=== PATIENT | female | born 1950 | race African-American/Black ===

== ENCOUNTER 2016-06-27 10:38 | Emergency (ER) | payer OTHER, MEDICAID ==
[~2016-06-27] VITALS: Ht 165.1 cm; Wt 79.4 kg
[2016-06-27 10:50] VITALS: BP 146/75
--- NOTE | 2016-06-27 12:15 | NUR ---
Patient to bed 05 via wheelchair per EMT.
--- NOTE | 2016-06-27 12:25 | NUR ---
PT PRESENTS TO ER W/C/O BUG BITE TO RIGHT FOREARM AND SWELLING TO AFFECTED AREA. HX DM, HTN, ASTHMA, OA, RA.REDNESS NOTED ON RT ARM;PAIN SCALE OF 10/10;AAOX4;DENIES SOB/COUGH/N/V/F AT THIS TIME;HOB ELEVATED;NEEDS ATTENDED;SAFETY MEASURES DONE;MD MADE AWARE OF PT'S CONDITION.
--- NOTE | 2016-06-27 12:50 | NUR ---
PT IS CRYING;PT STATES SHE'S IN PAIN; TRIED TO COMFORT PT;EXPALINED DR IS BUSY DUE TO HIGH VOLUME OF PT;POSITION PT FOR COMFORT;NOTIFIED DR MERIDA;
--- NOTE | 2016-06-27 12:52 | NUR ---
Dr. Daly evaluating patient at bedside.
--- NOTE | 2016-06-27 12:52 | NUR ---
DR MERIDA TALKED TO PT;ORDERED DILAUDID.
[2016-06-27] MEDS ORDERED: HYDROmorphone PFS 2 MG/ML SYR IM ONE (13:05)
--- NOTE | 2016-06-27 13:38 | NUR ---
LAB AT BEDSIDE.
[2016-06-27] MEDS ORDERED: LORazepam 2 MG/ML VIAL IM ONE (14:00)
[2016-06-27 14:02] LABS: BASOPHILS # (AUTO) 0.7 K/uL (0.00-0.22); EOSINOPHILS # (AUTO) 0.2 K/uL (0-0.4); HEMATOCRIT 41.9 % (36-48); HEMOGLOBIN 13.8 g/dL (12.0-16.0); LYMPHOCYTES # (AUTO) 2.8 K/uL (2.5-16.5); MEAN CORPUSCULAR HEMOGLOBIN 32 pg (27-31); MEAN CORPUSCULAR HGB CONC 33 g/dL (33-37); MEAN CORPUSCULAR VOLUME 97 fL (80-94); MONOCYTES # (AUTO) 0.3 K/uL (0.8-1.0); NEUTROPHILS # (AUTO) 9.1 K/uL (1.8-7.7); PLATELET COUNT (AUTO) 189 K/uL (140-450); RED BLOOD CELL COUNT(AUTO) 4.32 MIL/uL (4.20-5.40); WHITE BLOOD COUNT (AUTO) 13.1 K/uL (4.8-10.8)
[2016-06-27 14:18] LABS: ANION GAP 14.5 (8-16); CALCIUM 9.5 mg/dL (8.5-10.1); CARBON DIOXIDE 24.5 mmol/L (21-32); CREATININE 0.7 mg/dL (0.6-1.3)
[2016-06-27 14:21] LABS: INR 1.1 (0.8-1.2); PROTHROMBIN TIME 10.6 secs (10.8-13.4)
[2016-06-27 14:23] LABS: PARTIAL THROMBOPLASTIN TIME 18.8 secs (22-35.6); TOTAL BILIRUBIN 0.7 mg/dL (0.0-1.0); TOTAL PROTEIN, SERUM 7.1 g/dL (6.4-8.2)
[2016-06-27] MEDS ORDERED: DOXYCYCLINE 100 MG CAP PO SCH (14:55)
--- NOTE | 2016-06-27 15:01 | NUR ---
VIBRAMYCIN 100 MG IS NOT AVAILABLE IN THE [facility] [address] THEY SAID THEY WILL BRING THE MEDICINE.
--- NOTE | 2016-06-27 15:21 | NUR ---
Patient discharged with v/s stable. Written and verbal after care instructions given and explained.Patient alert, oriented and verbalized understanding of instructions. Ambulatory with steady gait. All questions addressed prior to discharge. ID band removed. Patient advised to follow up with PMD. Rx of PERCOCET,DOXYCYCLINE AND XANAX given. Patient educated on indication of medication including possible reaction and side effects. Opportunity to ask questions provided and answered.
[2016-06-27 15:22] VITALS: BP 154/76
== END 2016-06-27 15:21 | disposition home or self-care (01) ==
LOC: MED 10:38
DX: S50.861A Insect bite (nonvenomous) of right forearm, initial encounter (principal); J45.909 Unspecified asthma, uncomplicated; I25.2 Old myocardial infarction; E11.9 Type 2 diabetes mellitus without complications; I10 Essential (primary) hypertension; Z88.2 Allergy status to sulfonamides; Z88.6 Allergy status to analgesic agent; Z88.8 Allergy status to other drugs, medicaments and biological substances; W57.XXXA Bitten or stung by nonvenomous insect and other nonvenomous arthropods, initial encounter; Y93.89 Activity, other specified; Y92.89 Other specified places as the place of occurrence of the external cause; Y99.8 Other external cause status
CPT/HCPCS: 36415; 80053; 85025; 85610; 85730; 96372; 99284; J1170; J2060

== ENCOUNTER 2017-07-18 16:04 | Emergency (ER) | payer OTHER, MEDICAID ==
[~2017-07-18] VITALS: Ht 165.1 cm; Wt 83.0 kg
[2017-07-18 16:08] VITALS: BP 163/84
--- NOTE | 2017-07-18 16:11 | NUR ---
PT BACK TO LOBBY
--- NOTE | 2017-07-18 16:47 | NUR ---
66/F BIB SELF C/O REDNESS & SLIGHTLY SWOLLEN TO RFA S/P BUG BITE X YESTERDAY . AAOX4 WITH EVEN AND STEADY GAIT; LUNGS CLEAR BL. PATIENT STATES PAIN OF 9/10 AT THIS TIME; VSS; PATIENT POSITIONED FOR COMFORT; HOB ELEVATED; BEDRAILS UP X2; BED DOWN. ER MD MADE AWARE OF PT STATUS.
--- NOTE | 2017-07-18 16:47 | NUR ---
PT AMBULATED TO ER BED 5
--- NOTE | 2017-07-18 16:48 | NUR ---
Patient being evaluated by DR OLSON at bedside.
[2017-07-18] MEDS ORDERED: CLINDAMYCIN 600 MG/4 ML VIAL IM ONE (17:05)
[2017-07-18] MEDS ORDERED: DEXAMETHASONE 10 MG/ML VIAL IM ONE (17:05)
[2017-07-18] MEDS ORDERED: HYDROmorphone 1 MG/ML AMP IM ONE (17:40)
[2017-07-18] MEDS ORDERED: HYDROmorphone PFS 2 MG/ML SYR ONE (17:53)
[2017-07-18 18:49] VITALS: BP 158/81
--- NOTE | 2017-07-18 18:49 | NUR ---
Patient discharged with BP 158/81 DENIES BELLE AT THIS TIME, MD MADE AWARE. Written and verbal after care instructions given and explained. Patient alert, oriented and verbalized understanding of instructions. Ambulatory with steady gait. All questions addressed prior to discharge. ID band removed. Patient advised to follow up with PMD. Rx of TRAMADOL, CLINDAMYCIN&PREDNISONE given. Patient educated on indication of medication including possible reaction and side effects. Opportunity to ask questions provided and answered.
== END 2017-07-18 18:49 | disposition home or self-care (01) ==
LOC: MED 16:04
DX: T63.481A Toxic effect of venom of other arthropod, accidental (unintentional), initial encounter (principal); L03.113 Cellulitis of right upper limb; Y92.89 Other specified places as the place of occurrence of the external cause; E11.9 Type 2 diabetes mellitus without complications
CPT/HCPCS: 82948; 96372; 99284; J1100; J1170; J3490

== ENCOUNTER 2017-07-22 21:23 | Emergency (ER) | payer OTHER, MEDICAID ==
[~2017-07-22] VITALS: Ht 165.1 cm; Wt 81.6 kg
[2017-07-22 21:38] VITALS: BP 157/75
--- NOTE | 2017-07-22 21:44 | NUR ---
TO LOBBY, A/W BED, ZURDO, VSGem, ERMD NOTED.
--- NOTE | 2017-07-22 22:13 | NUR ---
PT TAKEN TO CHAIR E
[2017-07-22] MEDS ORDERED: SULFAMETH/TRIMETH DS 800/160MG 1 TAB PO ONE (23:20)
[2017-07-22] MEDS ORDERED: CEPHALEXIN 500 MG CAP PO ONE (23:20)
[2017-07-22] MEDS ORDERED: ACETAMINOPHEN EXTRA STRENGTH 500 MG TAB PO ONE (23:20)
[2017-07-22 23:55] VITALS: BP 143/82
--- NOTE | 2017-07-22 23:55 | NUR ---
Patient discharged with v/s stable. Written and verbal after care instructions given and explained. Patient alert, oriented and verbalized understanding of instructions. Ambulatory with steady gait. All questions addressed prior to discharge. ID band removed. Patient advised to follow up with PMD. Rx of Keflex, Bactrim, Ibuprofen and Mupirocin juan f given. Patient educated on indication of medication including possible reaction and side effects. Opportunity to ask questions provided and answered.
== END 2017-07-22 23:55 | disposition home or self-care (01) ==
LOC: MED 21:23
DX: L03.113 Cellulitis of right upper limb (principal); J45.909 Unspecified asthma, uncomplicated; I25.2 Old myocardial infarction; E11.9 Type 2 diabetes mellitus without complications; I10 Essential (primary) hypertension; Z88.2 Allergy status to sulfonamides; Z88.5 Allergy status to narcotic agent; Z88.8 Allergy status to other drugs, medicaments and biological substances
CPT/HCPCS: 82948; 99284

== ENCOUNTER 2018-05-29 11:38 | Emergency (ER) | payer OTHER, MEDICAID ==
[~2018-05-29] VITALS: Ht 165.1 cm; Wt 84.4 kg
[2018-05-29 11:50] VITALS: BP 180/89
--- NOTE | 2018-05-29 12:07 | NUR ---
PATIENT PRESENTS TO ED WITH THE CHIEF C/O RIGHT HIP AND SHOULDER PAIN SINCE SUNDAY. PT STATES SHE FELL ON HER RIGHT SIDE ON SUNDAY. DENIES LOC. NO INJURY OR SWELLING NOTED. TENDERNESS PRESENT TO RIGHT UPPER SHOULDER. PT MOVES RIGHT ARM WITH PAIN. AMBULATES WITH CANE. DENIES N/V/D; SKIN IS PINK/WARM/DRY. AAOX4 WITH EVEN AND STEADY GAIT. PT DENIES ANY FEVER, CP, SOB, OR COUGH AT THIS TIME. PATIENT STATES PAIN OF 10/10 AT THIS TIME. VSS. PATIENT POSITIONED FOR COMFORT. HOB ELEVATED. BEDRAILS UP X2. BED DOWN. ER MD MADE AWARE OF PT STATUS.
[2018-05-29] MEDS ORDERED: KETOROLAC 60 MG/2 ML VIAL IM ONE (12:25)
--- NOTE | 2018-05-29 13:05 | NUR ---
BACK FORM X-RAY.
[2018-05-29] MEDS ORDERED: HYDROcodone/APAP 5/325 MG 1 TAB TAB PO ONE (13:45)
[2018-05-29 14:16] VITALS: BP 187/73
--- NOTE | 2018-05-29 14:16 | NUR ---
Patient discharged with v/s stable. Written and verbal after care instructions given and explained. Patient verbalized understanding. Ambulatory with steady gait. All questions addressed prior to discharge. Advised to follow up with PMD.
== END 2018-05-29 14:16 | disposition home or self-care (01) ==
LOC: MED 11:38
DX: S70.01XA Contusion of right hip, initial encounter (principal); S49.91XA Unspecified injury of right shoulder and upper arm, initial encounter; M54.2 Cervicalgia; J45.909 Unspecified asthma, uncomplicated; E11.9 Type 2 diabetes mellitus without complications; I10 Essential (primary) hypertension; Z98.890 Other specified postprocedural states; Z88.5 Allergy status to narcotic agent; Z88.2 Allergy status to sulfonamides; Z88.6 Allergy status to analgesic agent; W01.0XXA Fall on same level from slipping, tripping and stumbling without subsequent striking against object, initial encounter; Y93.01 Activity, walking, marching and hiking; Y92.098 Other place in other non-institutional residence as the place of occurrence of the external cause; Y99.8 Other external cause status
CPT/HCPCS: 72170; 73030; 73060; 73502; 82948; 96372; 99283; J1885; Q0092

== ENCOUNTER 2018-11-17 17:48 | Emergency (ER) | payer OTHER, MEDICAID ==
[~2018-11-17] VITALS: Ht 165.1 cm; Wt 83.0 kg
[2018-11-17 17:52] VITALS: BP 112/70
--- NOTE | 2018-11-17 18:00 | NUR ---
PT TAKEN TO BED 2.
--- NOTE | 2018-11-17 18:27 | NUR ---
PT C/O LT FLANK PAIN THAT STARTED AT 0900. STABBING 10/10 PAIN. PT STATES NO INJURY TO BACK. PT C/O BP FLUCTUATING THROUGHOUT DAY. PT STATES SHE PASSED OUT 3X DURING CHRISTIAN TODAY & DOES NOT REMEMBER IT. NO C/O HEADACHE. PT SAYS SHE IS HAVING MORE FREQUENT URINATION THAN USUAL. PT LAYING IN BED RESTING, CALM. MEDHX: HTN, DM, ARTHRITIS
[2018-11-17] MEDS ORDERED: NACL 0.9% 500 ML IV SCH (18:48)
[2018-11-17] MEDS ORDERED: ONDANSETRON 4 MG/2 ML VIAL IVP ONE (18:50)
[2018-11-17 19:16] LABS: BASOPHILS # (AUTO) 0.1 K/uL (0.00-0.22); BASOPHILS % (AUTO) 1.1 % (0.0-2.0); EOSINOPHILS # (AUTO) 0.3 K/uL (0-0.4); EOSINOPHILS % (AUTO) 3.7 % (0.0-4.0); HEMATOCRIT 37.8 % (36-48); HEMOGLOBIN 12.5 g/dL (12.0-16.0); LYMPHOCYTES # (AUTO) 3.4 K/uL (2.5-16.5); LYMPHOCYTES % (AUTO) 37.2 % (20.5-51.1); MEAN CORPUSCULAR HEMOGLOBIN 32 pg (27-31); MEAN CORPUSCULAR HGB CONC 33 g/dL (33-37); MEAN CORPUSCULAR VOLUME 97.5 fL (80-94); MONOCYTES # (AUTO) 0.8 K/uL (0.8-1.0); MONOCYTES % (AUTO) 9.1 % (1.7-9.3); NEUTROPHILS # (AUTO) 4.4 K/uL (1.8-7.7); NEUTROPHILS % (AUTO) 48.9 % (42.2-75.2); PLATELET COUNT (AUTO) 173 K/uL (140-450); RED BLOOD CELL COUNT(AUTO) 3.88 MIL/uL (4.20-5.40); RED CELL DISTRIBUTION WIDTH 12.7 % (11.6-13.7)
[2018-11-17] MEDS ORDERED: CYCLOBENZAPRINE 10 MG TAB PO ONE (19:25)
--- NOTE | 2018-11-17 19:26 | NUR ---
TRANSFER OF CARE AND REPORT GIVEN FROM NILESH ARCHER
[2018-11-17 19:33] LABS: PROTHROMBIN TIME 10.7 secs (10.8-13.4)
[2018-11-17 19:43] LABS: ANION GAP 11.9 (8-16); CARBON DIOXIDE 28.5 mmol/L (21-32); POTASSIUM 4.4 mmol/L (3.5-5.1)
[2018-11-17 19:44] LABS: CREATININE 1.3 mg/dL (0.6-1.3); TOTAL BILIRUBIN 0.7 mg/dL (0.0-1.0)
[2018-11-17 19:45] LABS: ALBUMIN 3.7 g/dL (3.4-5.0)
--- NOTE | 2018-11-17 19:55 | NUR ---
XRAY AT BEDSIDE
[2018-11-17] MEDS ORDERED: HYDROcodone/APAP 5/325 MG 1 TAB TAB PO ONE (20:05)
--- NOTE | 2018-11-17 20:20 | NUR ---
PT RESTING IN BED COMFORTABLY. HR BETWEEN 46-55. ERMD NOTIFIED.
[2018-11-17 20:59] LABS: APPEARANCE,URINE HAZY (CLEAR); BILIRUBIN,URINE 1+ (NEGATIVE); BLOOD, URINE TRACE-L (NEGATIVE); COLOR,URINE YELLOW (YELLOW); LEUKOCYTE ESTERASE ,URINE 2+ (NEGATIVE); NITRITE, URINE NEGATIVE (NEGATIVE); PH,URINE 5.5 (5.0-9.0); UGLUCOSE TRACE (NEGATIVE)
[2018-11-17] MEDS ORDERED: NITROFURANTOIN 100 MG CAP PO ONE (21:05)
[2018-11-17 21:06] LABS: RBC,URINE 0-5 /HPF (0-5); WBC,URINE 80-100 /HPF (0-5)
[2018-11-17 21:27] VITALS: BP 119/52
== END 2018-11-17 21:28 | disposition home or self-care (01) ==
LOC: MED 17:48
DX: N39.0 Urinary tract infection, site not specified (principal); M25.50 Pain in unspecified joint; J45.909 Unspecified asthma, uncomplicated; E11.9 Type 2 diabetes mellitus without complications; I10 Essential (primary) hypertension; Z98.890 Other specified postprocedural states; Z88.5 Allergy status to narcotic agent; Z88.2 Allergy status to sulfonamides; Z88.8 Allergy status to other drugs, medicaments and biological substances
CPT/HCPCS: 36415; 71045; 80053; 81001; 83605; 83880; 84484; 85025; 85610; 85730; 87040; 87086; 93005; 96374; 99284; J2405; J7030; Q0092

== ENCOUNTER 2020-12-30 11:38 | Emergency (ER) | payer OTHER, MEDICAID ==
[~2020-12-30] VITALS: Ht 160 cm; Wt 65.8 kg
[2020-12-30 12:00] VITALS: BP 189/87
--- NOTE | 2020-12-30 12:32 | NUR ---
Patient being evaluated by DR WILKINSON at [facility].
--- NOTE | 2020-12-30 12:35 | NUR ---
PT W/C ASSIED TO BED 2.
[2020-12-30] MEDS ORDERED: MORPHINE SULFATE 4 MG/ML SYR IVP ONE (12:40)
[2020-12-30] MEDS ORDERED: NACL 0.9% 500 ML IV ONE (12:40)
[2020-12-30] MEDS ORDERED: ONDANSETRON 4 MG/2 ML VIAL IVP ONE (12:40)
--- NOTE | 2020-12-30 12:55 | NUR ---
70 y/o F BIB self from home c/o R hip pain, bilateral LE pain, low back pain, and generalized body pain s/p mechanical fall on Sunday. Patient A&Ox4, ambulatory with walker, reports she was using her walker [place] and tripped, hitting herself against a parked vehicle. Patient states she is unsure whether she lost consciousness, states bystanders assisted her back up. Patient states she was not seen for her injuries until her pain and symptoms worsened yesterday. Patient states 12/26, "toothache/constant," non-radiating pain. Patient reports most pain to low back and R hip, where she will have intermittent episodes of intense pain. Patient denies SOB, chest pain, fever, chills, nausea, vomiting, abd pain, headache, blurry vision. Patient reports on blood thinners and diagnosed with DVT to left UE 3 weeks ago. Pt placed into gown and cloth laminating supervisor showing BP 165/65 HR 48 strong and regular @ the radial. Bed locked in lowest position, side rails x 2 for pt safety, call light in reach. PMH: ASA, Xarelto, CAD A: Sulfa, morphine, ibuprofen
[2020-12-30] MEDS ORDERED: fentaNYL citrate 0.05 MG/ML VIAL IVP ONE (13:35)
[2020-12-30 13:41] LABS: ALBUMIN 4.1 g/dL (3.4-5.0); ANION GAP 10.6 (8-16); ASPARTATE AMINOTRANSFERASE 24 U/L (15-37); CARBON DIOXIDE 30.4 mmol/L (21-32); CHLORIDE 105 mmol/L (98-107); CREATININE 0.9 mg/dL (0.6-1.3); GLUCOSE 93 mg/dL (74-106); SODIUM SERUM 142 mmol/L (136-145); TOTAL BILIRUBIN 0.4 mg/dL (0.0-1.0); UREA NITROGEN, BLOOD 16 mg/dL (7-18)
[2020-12-30 13:54] LABS: BASOPHILS # (AUTO) 0.1 K/uL (0.00-0.22); BASOPHILS % (AUTO) 1.1 % (0.0-2.0); EOSINOPHILS # (AUTO) 0.2 K/uL (0-0.4); EOSINOPHILS % (AUTO) 2.2 % (0.0-4.0); HEMOGLOBIN 11.9 g/dL (12.0-16.0); LYMPHOCYTES # (AUTO) 1.8 K/uL (2.5-16.5); LYMPHOCYTES % (AUTO) 26.6 % (20.5-51.1); MEAN CORPUSCULAR HEMOGLOBIN 34 pg (27-31); MEAN CORPUSCULAR HGB CONC 33 g/dL (33-37); MEAN CORPUSCULAR VOLUME 102.7 fL (80-94); MONOCYTES # (AUTO) 0.3 K/uL (0.8-1.0); MONOCYTES % (AUTO) 4.9 % (1.7-9.3); NEUTROPHILS # (AUTO) 4.5 K/uL (1.8-7.7); NEUTROPHILS % (AUTO) 65.2 % (42.2-75.2); PLATELET COUNT (AUTO) 194 K/uL (140-450); RED BLOOD CELL COUNT(AUTO) 3.51 MIL/uL (4.20-5.40); RED CELL DISTRIBUTION WIDTH 13.2 % (11.6-13.7); WHITE BLOOD COUNT (AUTO) 6.9 K/uL (4.8-10.8)
[2020-12-30 14:10] LABS: PROTHROMBIN TIME 10.5 secs (10.8-13.4)
[2020-12-30] MEDS ORDERED: HYDROmorphone PFS 2 MG/ML SYR IVP ONE (16:30)
[2020-12-30] MEDS ORDERED: ACET-5629 PO (18:07)
[2020-12-30 18:45] VITALS: BP 196/62
--- NOTE | 2020-12-30 18:45 | NUR ---
Patient discharged with v/s stable. Written and verbal after care instructions given and explained. Patient alert, oriented and verbalized understanding of instructions. Wheelchair assisted to car without incident, accompanied by Ca (family). All questions addressed prior to discharge. ID band removed. Patient advised to follow up with PMD. Rx of Percocet 5-325 mg Tablet given. Patient educated on indication of medication including possible reaction and side effects. Opportunity to ask questions provided and answered.
== END 2020-12-30 18:45 | disposition home or self-care (01) ==
LOC: MED 11:38
DX: S33.5XXA Sprain of ligaments of lumbar spine, initial encounter (principal); S76.011A Strain of muscle, fascia and tendon of right hip, initial encounter; S80.211A Abrasion, right knee, initial encounter; S80.212A Abrasion, left knee, initial encounter; D50.9 Iron deficiency anemia, unspecified; E11.9 Type 2 diabetes mellitus without complications; I10 Essential (primary) hypertension; Z95.1 Presence of aortocoronary bypass graft; Z86.718 Personal history of other venous thrombosis and embolism; W19.XXXA Unspecified fall, initial encounter; Y93.89 Activity, other specified; Y92.89 Other specified places as the place of occurrence of the external cause; Y99.8 Other external cause status
CPT/HCPCS: 36415; 70450; 71260; 72125; 72128; 72131; 73560; 74177; 80053; 85025; 85610; 85730; 93005; 96361; 96374; 96375; 99285; J1170; J2405; J3010; J7030; Q0092; Q9967; J2270

== ENCOUNTER 2021-03-05 16:28 | Inpatient (IN) | payer OTHER, MEDICAID ==
[~2021-03-05] VITALS: Ht 157.5 cm; Wt 59.0 kg
[~2021-03-05 16:28] MED LIST: ACET-5629 PO
[2021-03-05 16:32] VITALS: BP 175/59
--- NOTE | 2021-03-05 16:35 | NUR ---
BIBA TO BED 08
[2021-03-05] MEDS ORDERED: DOCUSATE SODIUM 100 MG GELCAP PO ONE (17:40)
[2021-03-05] MEDS ORDERED: methocarbamoL 500 MG TAB PO ONE (17:40)
[2021-03-05] MEDS ORDERED: LIDOCAINE 5% 1 EA PATCH TP ONE (17:40)
--- NOTE | 2021-03-05 18:00 | NUR ---
PT BIB BLS RUN C/O GENERALIZED WEAKNESS SINCE THIS AM, ALSO C/O LOWER BACK PAIN.
--- NOTE | 2021-03-05 19:15 | NUR ---
RN RECIEVED SHIFT REPORT FROM DAY SHIFT RN.
--- NOTE | 2021-03-05 19:20 | NUR ---
RN ALERTED MD OF PT BLOOD PRESSURE 184/70.
--- NOTE | 2021-03-05 19:20 | NUR ---
RN TO PT ROOM. PT ALERT AND ORIENTED X4. EQUAL RISE AND FALL OF CHEST. PT COMPLAINING OF 22 G RIGHT AC IV, UPON ASSESSMENT OF IV SITE IV WAS PARTIALLY DC BY PT. RN CLEANED IV SITE AND RE-INSERTED IV 20 G L AC. PT TOLERATED PROCEDURE WELL. RN OFFERED PT WARM BLANKETS PER PT REQUEST. WILL CONTINUE TO MONITOR.
[2021-03-05 19:22] LABS: BASOPHILS # (AUTO) 0.1 K/uL (0.00-0.22); BASOPHILS % (AUTO) 0.9 % (0.0-2.0); EOSINOPHILS # (AUTO) 0.3 K/uL (0-0.4); EOSINOPHILS % (AUTO) 3.9 % (0.0-4.0); HEMATOCRIT 42.6 % (36-48); HEMOGLOBIN 14.4 g/dL (12.0-16.0); LYMPHOCYTES # (AUTO) 1.8 K/uL (2.5-16.5); LYMPHOCYTES % (AUTO) 20.6 % (20.5-51.1); MEAN CORPUSCULAR HEMOGLOBIN 33 pg (27-31); MEAN CORPUSCULAR HGB CONC 34 g/dL (33-37); MEAN CORPUSCULAR VOLUME 97.9 fL (80-94); MONOCYTES # (AUTO) 0.7 K/uL (0.8-1.0); MONOCYTES % (AUTO) 8.6 % (1.7-9.3); NEUTROPHILS # (AUTO) 5.8 K/uL (1.8-7.7); PLATELET COUNT (AUTO) 224 K/uL (140-450); RED BLOOD CELL COUNT(AUTO) 4.35 MIL/uL (4.20-5.40); RED CELL DISTRIBUTION WIDTH 12.3 % (11.6-13.7); WHITE BLOOD COUNT (AUTO) 8.8 K/uL (4.8-10.8)
[2021-03-05 19:42] LABS: ALBUMIN 3.9 g/dL (3.4-5.0); ASPARTATE AMINOTRANSFERASE 54 U/L (15-37); CARBON DIOXIDE 22.3 mmol/L (21-32); CHLORIDE 102 mmol/L (98-107); CREATININE 0.7 mg/dL (0.6-1.3); GLUCOSE 92 mg/dL (74-106); MAGNESIUM 1.8 mg/dL (1.8-2.4); POTASSIUM 4.3 mmol/L (3.5-5.1); SODIUM SERUM 135 mmol/L (136-145); TOTAL BILIRUBIN 0.8 mg/dL (0.0-1.0); UREA NITROGEN, BLOOD 8 mg/dL (7-18)
--- NOTE | 2021-03-05 20:14 | NUR ---
PT CRYING OUT, COMPLAINING OF PAIN. STATES THAT PREVIOUS PAIN MANAGEMENT INITIATED HAS NOT WORKED. RN ALERTED . TO BEDSIDE TO EVALUATE PT. MD MADE AWARE OF PT BLOOD PRESSURE.
[2021-03-05 20:27] LABS: CREATINE KINASE MB 1.5 ng/mL (0-3.6)
[2021-03-05] MEDS ORDERED: HYDROmorphone PFS 2 MG/ML SYR IVP ONE ×2 (20:35→23:25)
--- NOTE | 2021-03-05 20:35 | NUR ---
PT MEDICATED PER MD ORDERS. PLEASE SEE EHR.
[2021-03-05] MEDS ORDERED: NACL 0.9% 1,000 ML IV ONE (20:55)
--- NOTE | 2021-03-05 22:27 | NUR ---
PT STILL HAS NOT URINATED. NOTIFIED. NO NEW ORDERS RECIEVED AT THIS TIME.
--- NOTE | 2021-03-05 23:09 | NUR ---
RN TO PT ROOM. PT ALERT AND ORIENTED X4. COMPLAINING THAT PAIN IN LOWER BACK HAS INCREASED, RATES PAIN 10/10. REQUESTS MORE PAIN MEDICATION. NOTIFIED.
--- NOTE | 2021-03-05 23:09 | NUR ---
PT STILL HAS NOT URINATED MD NOTIFIED.
--- NOTE | 2021-03-05 23:41 | NUR ---
PT MEDICATED PER MD ORDERS. RN AT PT BEDSIDE DUE TO PT CRYING SAYING SHE IS SCARED. RN PROVIDED THERAPEUTIC COMMUNICATION AND ALLOWED PT TO EXPRESS HERSELF. PT STATES THAT SHE FEELS A LITTLE BETTER AFTER CONVERSATION.
[2021-03-05] MEDS ORDERED: POTASSIUM CHLORIDE 10 MEQ TABER PO PRN (23:45)
[2021-03-05] MEDS ORDERED: ACETAMINOPHEN 325 MG TAB PO PRN (23:45)
[2021-03-05] MEDS ORDERED: guaiFENesin DM 200/20 MG-10 ML 10 ML UDC PO PRN (23:45)
[2021-03-05] MEDS ORDERED: ZOLPIDEM 5 MG TAB PO PRN (23:45)
[2021-03-05] MEDS ORDERED: DOCUSATE SODIUM 100 MG GELCAP PO PRN (23:45)
--- NOTE | 2021-03-05 23:45 | NUR ---
PT UNABLE TO RECALL HOME MEDICATIONS.
[2021-03-06] MEDS ORDERED: hydrALAZINE 20 MG/ML VIAL IVP ONE ×2 (00:05→00:15)
--- NOTE | 2021-03-06 00:05 | NUR ---
PT BLOOD PRESSURE 238/84. NOTIFIED. NEW ORDERS RECIEVED.
[2021-03-06 00:25] LABS: PROTHROMBIN TIME 12.1 secs (10.8-13.4)
[2021-03-06] MEDS: NACL 0.9% 1,000 ML IV SCH ×2 (00:41→12:43)
--- NOTE | 2021-03-06 00:48 | NUR ---
URINE COLLECTED AND SENT TO LAB.
--- NOTE | 2021-03-06 01:02 | NUR ---
PT REQUESTS SLEEP AID DUE TO INSOMNIA.
--- NOTE | 2021-03-06 01:20 | NUR ---
PT MEDICATED PER MD ORDERS. RN TURNED DOWN LIGHTS TO PROMOTE SLEEP. PT REPOSITIONED IN BED FOR COMFORT. WARM BLANKETS PROVIDED.
--- NOTE | 2021-03-06 01:54 | NUR ---
NOTIFIED OF PT BLOOD PRESSURE BEING 230/70. TO PLACE NEW ORDERS IN MAY.
[2021-03-06] MEDS ORDERED: NIFEdipine 30 MG TABER PO SCH (01:55)
[2021-03-06] MEDS ORDERED: LABETALOL 100 MG/20 ML VIAL IV ONE (01:55)
[2021-03-06 02:21] LABS: CHOL/HDL RATIO 2.9 (1-4.5); FREE T4 (FREE THYROXINE) 1.07 ng/dL (0.76-1.46); THYROID STIMULATING HORMONE 0.99 uIU/mL (0.34-3.74)
--- NOTE | 2021-03-06 03:55 | NUR ---
PT LYING IN BED WITH EYES CLOSED, APPEARS TO BE ASLEEP. EQUAL RISE AND FALL OF CHEST. ALL VS ARE STABLE AT THIS TIME. BP DECREASED TO 180/60. NO ACUTE DISTRESS AT THIS TIME. WILL CONTINUE TO MONITOR PT.
--- NOTE | 2021-03-06 04:54 | NUR ---
PT REPOSITIONED FOR COMFORT. NO ACUTE DISTRESS AT THIS TIME. WILL CONTINUE TO MONITOR PT.
--- NOTE | 2021-03-06 06:29 | NUR ---
PT CALLED TO NURSING STATION TO BE REPOSITIONED. RN AND EMT REPOSITIONED PT PER REQUEST. NO ACUTE DISTRESS AT THIS TIME. WILL CONTINUE TO MONITOR PT.
[2021-03-06 07:00] LABS: BASOPHILS # (AUTO) 0.1 K/uL (0.00-0.22); EOSINOPHILS # (AUTO) 0.8 K/uL (0-0.4); EOSINOPHILS % (AUTO) 10.1 % (0.0-4.0); HEMATOCRIT 38.6 % (36-48); HEMOGLOBIN 12.8 g/dL (12.0-16.0); LYMPHOCYTES % (AUTO) 24.2 % (20.5-51.1); MEAN CORPUSCULAR HEMOGLOBIN 33 pg (27-31); MEAN CORPUSCULAR HGB CONC 33 g/dL (33-37); MEAN CORPUSCULAR VOLUME 99.6 fL (80-94); MONOCYTES % (AUTO) 12.1 % (1.7-9.3); NEUTROPHILS # (AUTO) 4.4 K/uL (1.8-7.7); NEUTROPHILS % (AUTO) 52.6 % (42.2-75.2); PLATELET COUNT (AUTO) 195 K/uL (140-450); RED BLOOD CELL COUNT(AUTO) 3.88 MIL/uL (4.20-5.40); RED CELL DISTRIBUTION WIDTH 12.4 % (11.6-13.7); WHITE BLOOD COUNT (AUTO) 8.4 K/uL (4.8-10.8)
--- NOTE | 2021-03-06 07:16 | NUR ---
Call light responded to pt requesting extra blanket states she is cold. [place] provided. All pt needs met at this time. monitoring manager remains in place. Bed locked in lowest position, side rails x 2, call light in reach.
--- NOTE | 2021-03-06 07:16 | NUR ---
REPORT GIVEN TO NILESH HOYT.
--- NOTE | 2021-03-06 07:16 | NUR ---
Report and continuation of care received from NILESH Ceballos
[2021-03-06 07:37] LABS: BARBITURATE, URINE NEGATIVE ng/ml (NEG <=200); BENZODIAZEPINE, URINE POSITIVE ng/mL (NEG <=200); CANNABINOID, URINE NEGATIVE ng/mL (NEG <=50); COCAINE, URINE NEGATIVE ng/mL (NEG <=300); OPIATE, URINE POSITIVE ng/mL (NEG <=2000); PHENCYCLIDINE SCREEN,URINE NEGATIVE ng/mL (NEG <=25)
[2021-03-06 07:39] LABS: ANION GAP 17.2 (8-16); CARBON DIOXIDE 18.3 mmol/L (21-32); CHLORIDE 105 mmol/L (98-107); CREATININE 0.7 mg/dL (0.6-1.3); GLUCOSE 77 mg/dL (74-106); POTASSIUM 3.5 mmol/L (3.5-5.1); SODIUM SERUM 137 mmol/L (136-145); UREA NITROGEN, BLOOD 7 mg/dL (7-18)
--- NOTE | 2021-03-06 08:26 | NUR ---
Report given to INLESH Rodriges.
--- NOTE | 2021-03-06 08:29 | NUR ---
Patient will be admitted to care of Dr. Hamilton. Admited to Med/Surg. Will go to room 104A. Belongings list completed. Report to NILESH Rodriges.
[2021-03-06 08:40] VITALS: BP 151/64
--- NOTE | 2021-03-06 08:40 | NUR ---
RECEIVED PATIENT FROM ER VIA GURNEY. PATIENT PRESENTED TO ER WITH SEVERE BACK PAIN. PATIENT IS A&O X4. RESPIRATIONS ARE EVEN AND UNLABORED ON ROOM AIR. PATIENT STATES NO BM IN 4 DAYS. ACTIVE BOWEL SOUNDS IN ALL 4 QUADRANTS. PATIENT AMBULATORY BUT VERY WEAK AND NEEDS ASSISTANCE. PUREWICK IN PLACE WITH CONTINUOUS SUCTION. IV SITE IS A 20G AT THE LEFT AC; PATENT, DRY, FLUSHING WELL. ORIENTED PATIENT TO ROOM AND HOSPITAL POLICY. PATIENT VERBALIZED UNDERSTANDING. ALL SAFETY PRECAUTIONS IN PLACE.
[2021-03-06] MEDS: PANTOPRAZOLE 40 MG TABEC PO SCH (09:08)
[2021-03-06] MEDS: HYDROmorphone 1 MG/ML AMP IVP PRN ×2 (09:10→15:21)
--- NOTE | 2021-03-06 09:10 | NUR ---
PATIENT COMPLAINS OF 10/10 LOWER BACK PAIN. ADMINISTERED PRN PAIN MEDICATION. PATIENT VERBALIZED UNDERSTANDING. ALL SAFETY PRECAUTIONS IN PLACE.
--- NOTE | 2021-03-06 12:05 | NUR ---
PATIENT IS AWAKE AND RESTING IN BED. NO S/S OF DISTRESS. ALL SAFETY PRECAUTIONS IN PLACE.
[2021-03-06] MEDS: LORazepam 2 MG/ML VIAL IVP PRN (12:43)
--- NOTE | 2021-03-06 15:21 | NUR ---
PATIENT COMPLAINS OF 9/10 PAIN. ADMINISTERED PRN PAIN MEDICATION. PATIENT VERBALIZED UNDERSTANDING. ALL SAFETY PRECAUTIONS IN PLACE.
[2021-03-06 16:00] VITALS: BP 157/66
--- NOTE | 2021-03-06 19:57 | NUR ---
ENDORSED PATIENT TO SQL SERVER ARCHITECT RN. FOR CONTINUITY OF CARE. PATIENT IS STABLE.
[2021-03-06 20:00] VITALS: BP 125/75
[2021-03-07] MEDS: HYDROmorphone 1 MG/ML AMP IVP PRN (01:59)
--- NOTE | 2021-03-07 02:46 | NUR ---
PATIENT AWAKE C/O OF PAIN IN BACK PATIENT IV SITE WAS LEAKING TRIED TO START ANOTHER IV SITE NOT ABLE TO GET WAS NOT ABLE TO GIVE DILAUDID 0.5 TOLD CHARGE NURSE I DID NOT GIVE DILAUDID WAIST MEDICATION. PATIENT INCONT. OF STOOL AND URINE. NO SIGNS OF DISTRESS.
[2021-03-07 04:00] VITALS: BP 180/80
[2021-03-07 07:06] LABS: ANION GAP 16.6 (8-16); CARBON DIOXIDE 23.3 mmol/L (21-32); CHLORIDE 107 mmol/L (98-107); CREATININE 0.7 mg/dL (0.6-1.3); GLUCOSE 102 mg/dL (74-106); POTASSIUM 3.9 mmol/L (3.5-5.1); SODIUM SERUM 143 mmol/L (136-145); UREA NITROGEN, BLOOD 7 mg/dL (7-18)
--- NOTE | 2021-03-07 07:10 | NUR ---
RECEIVED ENDORSEMENT FROM HEAD OF TRAINING AND DEVELOPMENT NURSE FOR CONTINUITY OF CARE. ALL SAFETY MEASURE IN PLACE.
[2021-03-07 07:22] LABS: BASOPHILS # (AUTO) 0.1 K/uL (0.00-0.22); BASOPHILS % (AUTO) 0.9 % (0.0-2.0); EOSINOPHILS % (AUTO) 9.7 % (0.0-4.0); HEMATOCRIT 41.7 % (36-48); LYMPHOCYTES % (AUTO) 20.2 % (20.5-51.1); MEAN CORPUSCULAR HEMOGLOBIN 33 pg (27-31); MEAN CORPUSCULAR HGB CONC 34 g/dL (33-37); MEAN CORPUSCULAR VOLUME 97.8 fL (80-94); MONOCYTES # (AUTO) 0.9 K/uL (0.8-1.0); MONOCYTES % (AUTO) 9.1 % (1.7-9.3); NEUTROPHILS % (AUTO) 60.1 % (42.2-75.2); PLATELET COUNT (AUTO) 217 K/uL (140-450); RED BLOOD CELL COUNT(AUTO) 4.27 MIL/uL (4.20-5.40); RED CELL DISTRIBUTION WIDTH 12.3 % (11.6-13.7); WHITE BLOOD COUNT (AUTO) 9.9 K/uL (4.8-10.8)
--- NOTE | 2021-03-07 08:00 | NUR ---
PT COMPLAINING OF PAIN AND ALSO NOTED WITH ELEVATED BLOOD PRESSURE OF 200/80 AND BP MED DISCONTINUE AND UNABLE TO OBTAINED IV LINE . INFORM DR. HAMILTON WAITING FOR RESPONSE.
--- NOTE | 2021-03-07 08:00 | NUR ---
DISCUSSED PLAN OF CARE WITH IGNACIO YEBOAH. WILL CONTINUE TO MONITOR
[2021-03-07 08:06] LABS: T4 (THYROXINE) 8.4 ug/dL (4.5-12.0)
[2021-03-07] MEDS ORDERED: HYDROcodone/APAP 5/325 MG 1 TAB TAB PO PRN (08:35)
[2021-03-07] MEDS: PANTOPRAZOLE 40 MG TABEC PO SCH (09:26)
--- NOTE | 2021-03-07 10:24 | NUR ---
MULTIPLE ATTEMPTS TO SEE PATIENT FOR PHYSICAL THERAPY EVALUATION HOWEVER PATIENT CONTINUES REFUSAL STATING SHE HAS 10/10 PAIN ON HER MID-BACK AND FEELING NAUSEOUS. PATIENT IS PREMEDICATED; RN NOTIFIED OF SYMPTOMS. PATIENT STATED " I CAN'T AND DO NOT WANT TO ATTEMPT TO GET UP TODAY." WILL FOLLOW UP TOMORROW; RN AWARE.
--- NOTE | 2021-03-07 10:32 | NUR ---
PATIENT HAS BEEN SCREENED AND CATEGORIZED LOW NUTRITION RISK. PATIENT WILL BE SEEN WITHIN 7 DAYS OF ADMISSION. 03/12/[address]
[2021-03-07] MEDS ORDERED: NIFEdipine 30 MG TABER PO SCH (11:30)
--- NOTE | 2021-03-07 11:41 | NUR ---
OBTAINED ORDER AND GIVEN BLOOD PRESSURE MEDICATION TO PT.
[2021-03-07] MEDS: ONDANSETRON 4 MG/2 ML VIAL IM/IVP PRN (12:05)
--- NOTE | 2021-03-07 12:07 | NUR ---
PT GIVEN ZOFRAN IM FOR COMPLAIN OF NAUSEA.
[2021-03-07] MEDS: NACL 0.9% 1,000 ML IV SCH ×2 (13:15→20:00)
--- NOTE | 2021-03-07 14:35 | NUR ---
DR. HAMILTON AT BED SIDE INFORM PT FOR THE PROCEDURE HE ORDER AND GET CONSENT FROM PT.
[2021-03-07 16:00] VITALS: BP 200/85
--- NOTE | 2021-03-07 16:27 | NUR ---
RN TRIED AGAIN TO PUT IV BUT UNSUCCESSFUL PT COMPLAIN OF PAIN AND REFUSED TO TAKE NORCO DUE TO SIDE EFFECT OF NAUSEA INFORM. DR. HAMILTON IF WE CAN GET IM DILAUDID.
[2021-03-07] MEDS: HYDROmorphone 1 MG/ML AMP IM PRN (17:13)
--- NOTE | 2021-03-07 17:16 | NUR ---
DILAUDID IM ORDER AND GIVEN TO PT.
--- NOTE | 2021-03-07 18:00 | NUR ---
MID LINE DONE ON RIGHT UPPER ARM WITH DOUBLE LUMEN.
--- NOTE | 2021-03-07 19:15 | NUR ---
GAVE REPORT TO PLANNING RN NURSE FOR CONTINUITY OF CARE. PT STABLE.
--- NOTE | 2021-03-07 19:16 | NUR ---
RECEIVED REPORT FROM MORNING SHIFT FOR CONTINUITY OF CARE. PATIENT IS STABLE IN BED. A&OX4. VERBALLY RESPONSIVE AND ABLE TO COMMUNICATE NEEDS. STATES TOLERABLE PAIN. RESPIRATIONS EVEN AND UNLABORED. ON ROOM AIR WITH NO APPARENT S/SX OF ACUTE DISTRESS. SKIN IS INTACT. PATIENT IS INCONTINENT. PADS ARE PRESENT. MIDLINE RIGHT UPPER ARM IS PATENT, INTACT AND ASYMPTOMATIC WITH NS INFUSING AT 80 ML/HOUR. PLAN OF CARE AND WHITE COMMUNICATION BOARD UPDATED. BED IN LOW/LOCKED POSITION. CALL LIGHT WITHIN REACH. ENCOURAGED PATIENT TO CALL FOR ANY NEEDS/ASSISTANCE. WILL CONTINUE TO MONITOR.
--- NOTE | 2021-03-07 20:00 | NUR ---
PATIENT'S BP IS HIGH. WILL CONTACT MD FOR FURTHER INSTRUCTIONS.
--- NOTE | 2021-03-07 20:30 | NUR ---
TOUR ACTOR TRACY CALLED TO BATTERY CONTAINER TESTER PATIENT FOR CT WITH CONTRAST. ADVISED TECH TO DELAY TRANSPORT BATTERY CONTAINER TESTER UNTIL BP HAS BEEN STABILIZED.
[2021-03-07] MEDS: hydrALAZINE 25 MG TAB PO PRN (20:53)
--- NOTE | 2021-03-07 21:00 | NUR ---
Patient's Plan of Care was discussed and reviewed with GOLF CART REPAIRER: STACY OVIEDO
--- NOTE | 2021-03-07 21:25 | NUR ---
RECHECKED PATIENT'S BLOOD PRESSURE AND DECREASED TO 133/75. PATIENT STATED SHE MIGHT VOMIT. PROVIDED WITH EMESIS BAG AND TOWEL. CONTACTED GAS APPLIANCE REPAIRER JORGE THAT PATIENT IS READY FOR SUPPLY CHAIN VICE PRESIDENT. PATIENT'S RESPIRATIONS EVEN AND UNLABORED WITH NO APPARENT S/SX OF ACUTE DISTRESS. WHITE COMMUNICATION BOARD UPDATED. ALL SAFETY MEASURES IN PLACE. CALL LIGHT WITHIN REACH. WILL CONTINUE TO MONITOR.
[2021-03-07] MEDS: LORazepam 2 MG/ML VIAL IVP PRN (22:03)
--- NOTE | 2021-03-07 22:20 | NUR ---
PAGED ROBERT SCALES TO FOLLOW UP WITH BUFFER MACHINE. SPOKE WITH ROBERT AGUILAR.
--- NOTE | 2021-03-07 22:30 | NUR ---
ROBERT AGUILAR CALLED TO INFORM NURSE THAT 3 CONSENT FORMS MUST BE PRESENT IN ORDER TO GET THE TEST DONE. CONTACTED ON-CALL DR. JAYNE YING TO OBTAIN SIGNATURE FOR CT LUMBAR SPINE WITH CONTRAST, CT CHEST WITH CONTRAST, AND CT HEAD WITH CONTRAST. DR. YING GAVE CONSENT THROUGH TELEPHONE ORDER.
--- NOTE | 2021-03-07 23:16 | NUR ---
SPOKE WITH ROBERT AGUILAR AND INFORMED NURSE THAT SIGNATURE THROUGH TELEPHONE ORDER IS NOT ACCEPTABLE PER FACILITY PROTOCOL. CONTACTED DR. JAYNE YING AND ADVISED THAT HE HAS NO FAX MACHINE SO DR. HAMILTON WILL HAVE TO SIGN THE CONSENT FORMS IN THE MORNING. WILL ENDORSE TO THE PATIENT.
--- NOTE | 2021-03-07 23:30 | NUR ---
INFORMED PATIENT THAT DR. YING IS NOT ABLE TO SIGN FORMS DUE TO NOT HAVING ANY FAX MACHINE. PATIENT VERBALIZED UNDERSTANDING. PATIENT HAS BEEN NPO SINCE 1400 AND REQUESTED FOR SOME SNACKS. PROVIDED PATIENT WITH SNACKS. PATIENT STATES THAT SHE IS SOILED. ENDORSED TO OPERATIONS PROGRAM MANAGER AIDAN TO CLEAN AND CHANGE PATIENT. PATIENT DENIES PAIN AT THIS TIME. RESPIRATIONS EVEN AND UNLABORED WITH NO APPARENT S/SX OF ACUTE DISTRESS. ALL SAFETY MEASURES IN PLACE. CALL LIGHT WITHIN REACH. WILL CONTINUE TO MONITOR.
[2021-03-08] VITALS: BP 133/76
[2021-03-08] MEDS: ONDANSETRON 4 MG/2 ML VIAL IM/IVP PRN (00:10)
--- NOTE | 2021-03-08 01:40 | NUR ---
CHECKED PATIENT. STABLE AND RESTING. CHEST IS RISING AND FALLING SYMMETRICALLY. RESPIRATIONS EVEN AND UNLABORED WITH NO APPARENT S/SX OF ACUTE DISTRESS. WHITE COMMUNICATION BOARD UPDATED. ALL SAFETY MEASURES IN PLACE. CALL LIGHT WITHIN REACH. WILL CONTINUE TO MONITOR.
[2021-03-08] MEDS: NACL 0.9% 1,000 ML IV SCH ×2 (01:45→15:02)
[2021-03-08] MEDS: HYDROmorphone 1 MG/ML AMP IM PRN ×3 (01:54→20:06)
[2021-03-08] MEDS: hydrALAZINE 25 MG TAB PO PRN (02:53)
--- NOTE | 2021-03-08 03:40 | NUR ---
PATIENT'S BLOOD PRESSURE STILL HIGH AFTER TAKING HYDRALAZINE. WILL CONTACT MD FOR FURTHER INSTRUCTIONS. PATIENT DENIES CHEST PAIN AND HEADACHE.
[2021-03-08] MEDS ORDERED: METOCLOPRAMIDE 10 MG/2 ML INJ VIAL IVP PRN (03:45)
[2021-03-08] MEDS ORDERED: LABETALOL 100 MG/20 ML VIAL IV ONE (03:45)
--- NOTE | 2021-03-08 05:30 | NUR ---
NILESH BARRAZA ASSISTED WITH BLOOD WITHDRAWAL FROM MIDLINE. TOLERATED WELL. NO ADVERSE REACTION NOTED. PATIENT DENIES PAIN AT THIS TIME. RESPIRATIONS EVEN AND UNLABORED WITH NO APPARENT S/SX OF ACUTE DISTRESS. WHITE COMMUNICATION BOARD UPDATED. ALL SAFETY MEASURES IN PLACE. CALL LIGHT WITHIN REACH. WILL CONTINUE TO MONITOR.
--- NOTE | 2021-03-08 07:05 | NUR ---
ENDORSED PATIENT TO MORNING SHIFT FOR CONTINUITY OF CARE. PATIENT IS STABLE.
--- NOTE | 2021-03-08 07:06 | NUR ---
RECEIVED REPORT FROM SPARE FIXER NURSE FOR CONTINUITY OF CARE. PT IS IN BED SLEEPING AT THIS TIME. RESPIRATIONS ARE EVEN AND UNLABORED. NO SIGNS OF DISTRESS NOTED. CALL LIGHT WITHIN REACH. ALL SAFETY MEASURES IN PLACE. WILL CONTINUE TO MONITOR.
[2021-03-08 07:11] LABS: BASOPHILS % (AUTO) 0.2 % (0.0-2.0); EOSINOPHILS # (AUTO) 0.2 K/uL (0-0.4); EOSINOPHILS % (AUTO) 2.3 % (0.0-4.0); HEMATOCRIT 40.9 % (36-48); HEMOGLOBIN 13.6 g/dL (12.0-16.0); LYMPHOCYTES # (AUTO) 1.9 K/uL (2.5-16.5); LYMPHOCYTES % (AUTO) 18.9 % (20.5-51.1); MEAN CORPUSCULAR HEMOGLOBIN 33 pg (27-31); MEAN CORPUSCULAR HGB CONC 33 g/dL (33-37); MEAN CORPUSCULAR VOLUME 98.1 fL (80-94); MONOCYTES # (AUTO) 0.9 K/uL (0.8-1.0); MONOCYTES % (AUTO) 9.3 % (1.7-9.3); NEUTROPHILS # (AUTO) 6.8 K/uL (1.8-7.7); NEUTROPHILS % (AUTO) 69.3 % (42.2-75.2); PLATELET COUNT (AUTO) 210 K/uL (140-450); RED BLOOD CELL COUNT(AUTO) 4.17 MIL/uL (4.20-5.40); RED CELL DISTRIBUTION WIDTH 12.2 % (11.6-13.7); WHITE BLOOD COUNT (AUTO) 9.9 K/uL (4.8-10.8)
[2021-03-08 07:17] LABS: CARBON DIOXIDE 19.7 mmol/L (21-32); CHLORIDE 106 mmol/L (98-107); CREATININE 0.8 mg/dL (0.6-1.3); GLUCOSE 126 mg/dL (74-106); POTASSIUM 3.7 mmol/L (3.5-5.1); SODIUM SERUM 142 mmol/L (136-145); UREA NITROGEN, BLOOD 9 mg/dL (7-18)
--- NOTE | 2021-03-08 07:43 | NUR ---
PATIENT IS STABLE IN BED RESTING AT THIS TIME. A&OX4. VERBALLY RESPONSIVE AND ABLE TO COMMUNICATE NEEDS. NO SIGNS OF PAIN AT THIS TIME. RESPIRATIONS EVEN AND UNLABORED. ON ROOM AIR WITH NO APPARENT S/SX OF ACUTE DISTRESS. SKIN IS INTACT. PATIENT IS INCONTINENT OF BOWEL AND BLADDER. ABD IS NONTENDER, NONDISTENDED WITH BOWEL SOUNDS PRESENT. MIDLINE RIGHT UPPER ARM IS PATENT, INTACT AND ASYMPTOMATIC WITH NS INFUSING AT 80 ML/HOUR. PLAN OF CARE AND WHITE COMMUNICATION BOARD UPDATED. BED IN LOW/LOCKED POSITION. ALL SAFETY MEASURES IN PLACE. CALL LIGHT WITHIN REACH. ENCOURAGED PATIENT TO CALL FOR ANY NEEDS/ASSISTANCE. WILL CONTINUE TO MONITOR.
[2021-03-08 08:00] VITALS: BP 153/73
--- NOTE | 2021-03-08 08:45 | NUR ---
RADIOLOGY CALLED TO MAKE SURE CONSENTS WERE SIGNED. RADIOLOGY ALSO STATED THAT DUE TO PT HAVING A MIDLINE IN PLACE, THEY WOULD NEED A NURSE TO GO WITH HER TO CT SCAN. INFORMED RUBBER COMPOUNDER SUPERVISOR. AT THIS TIME PT CONTINUES TO BE NPO UNTIL AFTER CT SCAN. WILL CONTINUE TO MONITOR.
[2021-03-08] MEDS ORDERED: NIFEdipine 30 MG TABER PO SCH (09:00)
[2021-03-08] MEDS: NIFEdipine 30 MG TABER PO SCH (09:07)
[2021-03-08] MEDS: PANTOPRAZOLE 40 MG TABEC PO SCH (09:07)
--- NOTE | 2021-03-08 09:07 | NUR ---
ADMINISTERED ALL SCHEDULED MEDICATIONS. EDUCATED PT ON MEDICATIONS ADMINISTERED. PT STATED AN UNDERSTANDING OF ALL INFORMATION PROVIDED.
[2021-03-08] MEDS ORDERED: NIFE30TA36 PO (10:10)
[2021-03-08] MEDS ORDERED: PANT40EC56 PO (10:10)
[2021-03-08] MEDS ORDERED: ACET-9525 PO (10:10)
[2021-03-08] MEDS ORDERED: DOCU-299 PO (10:10)
--- NOTE | 2021-03-08 12:05 | NUR ---
PT COMPLAINING OF PAIN. STATING PAIN IS 9/10. MEDICATED WITH DILAUDID PER MD ORDER. WILL CONTINUE TO MONITOR.
--- NOTE | 2021-03-08 13:05 | NUR ---
WENT TO RE-ASSESS PT PAIN. PT IS SLEEPING AT THIS TIME. RESPIRATIONS ARE EVEN AND UNLABORED. NO SIGNS OF DISTRESS NOTED. WILL CONTINUE TO MONITOR.
--- NOTE | 2021-03-08 15:54 | NUR ---
DC PLANNING: THE PATIENT ADMITTED FROM HOME WITH C/O OF WORSENING GENERALIZED WEAKNESS AND SVERE BACK PAIN. H/O SC, ASTHAM, CABG, DM AND HTN. CT OF LUMBAR SPINE SHOWS AN EROSIVE LESION CONSISTENT WITH METASTATIC DISEASE, ADMITTED FOR FURTHER W/U. CM SPOKE WITH THE PATIENT AND HER DAUGHTER JULIO AT BEDSIDE, CONFIRMED HER ADDRESS AND CONTACT INFORMATION. SHE LIVES IN A TOWNHOUSE WITH HER SON AND , HER DAUGHTER JULIO IS VISITING FROM [place]. SHE IS ABLE TO AMBULATE IN HER HOME AND AMBULATES VERY LITTLE OUTSIDE OF IT. SHE USES A FWW AND HAS NO OTHER DME, HAS HAD HOME HEALTH IN THE PAST BUT CAN'T REMEMBER THE AGENCY NAME. SHE REQUIRES ASSISTANCE WITH ADL'S, CM DISCUSSED DC PLANNING WITH POTENTIAL SNF PLACEMENT, PATIENT AND FAMILY ARE DECLINING SNF AND ASKING FOR HOME HEALTH P.T.. PATIENT AND FAMILY HAVE NO PREFERENCE FOR HOME HEALTH AGENCY, REFERRAL FAXED TO [facility] ([phone]), ENDORSED THAT THE PATIENT WILL DISCHARGE TODAY. PER HER ATTENDING MD THE PATIENT SHOULD FOLLOW UP WITH HEM/ONC MD HENRY DAVIS, ORDER WRITTEN TO REFLECT THIS. CM WILL FOLLOW FOR NEEDS.
[2021-03-08 16:00] VITALS: BP 151/76
--- NOTE | 2021-03-08 16:20 | NUR ---
PT IN BED AT THIS TIME, WATCHING TELEVISION. PT STATING THAT SHE HAS NOT SEEN A DR THE WHOLE TIME SHE HAS BEEN HERE AND IS STATING SHE IS VERY UPSET. INFORMED PT THAT DR DOES ROUNDS DAILY. PT HAS DISCHARGE ORDER IN PLACE. PT STATING SHE IS NOT LEAVING UNTIL SHE SPEAKS TO DR, OR HER DAUGHTER. PT DAUGHTER STATED SHE WILL BE BACK AT 1800 TO SPEAK WITH PT. WILL CONTINUE TO MONITOR.
--- NOTE | 2021-03-08 17:00 | NUR ---
STILL AWAITING PT DAUGHTER TO ARRIVE TO SPEAK TO HER REGARDING DISCHARGE. WILL CONTINUE TO MONITOR AND WAIT.
[2021-03-08 18:47] VITALS: BP 153/73
--- NOTE | 2021-03-08 19:33 | NUR ---
ENDORSED PT TO ASSISTANT PROFESSOR OF SPANISH NURSE FOR CONTINUITY OF CARE. PT IS STABLE. STILL AWAITING PT DAUGHTER TO DISCUSS POSSIBLE DISCHARGE. ENDORSED TO ASSISTANT PROFESSOR OF SPANISH.
--- NOTE | 2021-03-08 19:35 | NUR ---
RECEIVED BEDSIDE REPORT FROM DAY SHIFT RN FOR CONTINUITY OF CARE. PT IS AWAKE IN BED. PT IS ON RA BREATHING RHYTHMIC AND NOT IN DISTRESS. PT HAS A KEN MIDLINE WITH NS RUNNING AT 80 ML/HR. CALL LIGHT WITHIN REACH. ALL SAFETY MEASURES TAKEN. WILL CONTINUE TO OBSERVE THE PT.
[2021-03-08 20:00] VITALS: BP 157/67
--- NOTE | 2021-03-08 20:30 | NUR ---
PT DAUGHTER IS AT BEDSIDE. PT IS NOT IN ANY DISTRESS AND HAS NO COMPLAINS AT THIS TIME. WILL CONTINUE TO OBSERVE THE PT AND PROVIDE PLAN OF CARE.
--- NOTE | 2021-03-08 23:30 | NUR ---
PT IS SLEEPING IN BED. PT SHOWS NO SIGNS OF DISTRESS. NO SIGNS OF SOB OR LABORED BREATHING. IVF RUNNING MD ORDER. WILL CONTINUE TO MONITOR THE PT.
--- NOTE | 2021-03-09 02:10 | NUR ---
PT REQUESTED TO HAVE HER BED CHANGED AND CLEAN. BED WAS CHANGE AND CLEAN REQUESTED. NO FURTHER COMPLAINS FROM THE PT. PT IS NOT IN ANY DISTRESS. WILL CONTINUE TO OBSERVE THE PT.
[2021-03-09] MEDS: NACL 0.9% 1,000 ML IV SCH (02:32)
[2021-03-09 04:00] VITALS: BP 169/62
[2021-03-09] MEDS: LORazepam 2 MG/ML VIAL IVP PRN (05:47)
--- NOTE | 2021-03-09 06:15 | NUR ---
PT COMPLAIN OF WANTING TO BE CHANGED. PT WAS CHANGED REQUESTED. NO FURTHER COMPLAINS FROM THE PT. PT IS NOT IN ANY DISTRESS. CALL LIGHT WITHIN REACH. ALL SAFETY MEASURES TAKEN. WILL CONTINUE TO MONITOR THE PT.
--- NOTE | 2021-03-09 07:30 | NUR ---
RECEIVED REPORT FROM PM SHIFT RN FOR CONTINUITY OF CARE.PT. COMFORTABLY SLEEPING IN THE BED. NOT IN DISTRESS NOTED. PLAN FOR D/C HOME. TODAY. WILL FOLLOW UP.
--- NOTE | 2021-03-09 07:55 | NUR ---
ENDORSED PT TO DAY SHIFT RN FOR CONTINUITY OF CARE. PT IS IN STABLE CONDITION. SIGNING OUT.
[2021-03-09 08:00] VITALS: BP 176/65
--- NOTE | 2021-03-09 08:30 | NUR ---
PT'S DAUGHTER RIC CALLED ME. AND ASKED ABOUT MD, WANTED TO TALKED TO . RE. DX OF METASTASIS. THEN SHE CAN COME AND PIK UP THE MOM UPDATED HER STATUS. AND TOLD HER FOLLOW UP WITH .
[2021-03-09] MEDS: PANTOPRAZOLE 40 MG TABEC PO SCH (08:36)
[2021-03-09] MEDS: NIFEdipine 30 MG TABER PO SCH (08:37)
--- NOTE | 2021-03-09 09:30 | NUR ---
CALLED ME. AND INFORMED HER RE. CONCERNED OF DAUGHTER AND PT. WANTS TALK TO MD. RE. DIAGNOSIS. PER MD ,SAID SHE ALREADY TALKED TO PT. AND HER DAUGHTER RE. THAT. BUT SAID WILL COME AND SEE THE PT.NOTIFIED PATIENTB REGARDING MD. ORELLANA COME TO SEE YOU. SAID OK.ALSO MADE AWARE HER RE. SHE HAS APPOINTMENT WITH ONCOLOGIST DR. DAVIS. . SAID OK.WILL FOLLOW UP FURTHER.
--- NOTE | 2021-03-09 10:00 | NUR ---
PT. RESTING COMFORTABLY. WITHOUT DISTRESS ON ROOM AIR. ALL SAFETY MEASURES IN PLACED. WILL CONTINUE TO MONITOR THE PT.
--- NOTE | 2021-03-09 11:00 | NUR ---
PT'S DAUGHTER CALLED TO MOM AND SAID SHE IS COMING TO PICK HER UP. SPOKE WITH DAUGHTER. SAID SHE IS COMING TO PHERESIS NURSE HER MOM.
--- NOTE | 2021-03-09 11:45 | NUR ---
PT'S DAUGHTER RIC CAME TO [place] REPORTER HER. ALL INSTRUCTION RE. MEDICATION AND FOLLOW UP WITH MD;S APPOINTMENT. TO SEE THE DR. DAVIS. ONCOLOGIST. VERBALIZED UNDERSTANDING. REMOVED IV ACCESSES. NO BLEEDING NOTED. PRESSURE HELD AND DRY GAUZE APPLIED. .
--- NOTE | 2021-03-09 12:00 | NUR ---
DROPPED PT. TO THE CAR VIA WHEELCHAIR IN STABLE CONDITION ACCOMPANIED WITH DAUGHTER.
== END 2021-03-09 12:25 | disposition home health service (06) | DRG 542 ==
LOC: MED 16:28 → MTU 23:44
PROVIDERS: ADMIT Family Medicine; ATTEND Family Medicine
DX: C41.2 Malignant neoplasm of vertebral column (principal); G93.41 Metabolic encephalopathy; E87.1 Hypo-osmolality and hyponatremia; E86.0 Dehydration; M54.89 Other dorsalgia; G89.29 Other chronic pain; I10 Essential (primary) hypertension; E11.9 Type 2 diabetes mellitus without complications; J43.2 Centrilobular emphysema; M19.012 Primary osteoarthritis, left shoulder; M19.011 Primary osteoarthritis, right shoulder; M47.814 Spondylosis without myelopathy or radiculopathy, thoracic region; M85.80 Other specified disorders of bone density and structure, unspecified site; K76.0 Fatty (change of) liver, not elsewhere classified; E04.1 Nontoxic single thyroid nodule; I25.10 Atherosclerotic heart disease of native coronary artery without angina pectoris; R74.01 Elevation of levels of liver transaminase levels; J45.909 Unspecified asthma, uncomplicated; Z95.1 Presence of aortocoronary bypass graft; I25.2 Old myocardial infarction; Z87.891 Personal history of nicotine dependence; Z88.6 Allergy status to analgesic agent; Z88.2 Allergy status to sulfonamides; Z88.8 Allergy status to other drugs, medicaments and biological substances
CPT/HCPCS: 36415; 70470; 71045; 71270; 72128; 72131; 72133; 80048; 80053; 80305; 82150; 82550; 82553; 83036; 83690; 83735; 83880; 84100; 84436; 84439; 84443; 84479; 84484; 85025; 85610; 85730; 87081; 93005; 96361; 96374; 96376; 97163-GP; 97530; 99285; J0360; J1170; J2060; J2405; J2765; J3490; Q0092; Q9967